=== PATIENT | female | born 1960 | race Caucasian/White ===

== ENCOUNTER 2021-10-20 05:58 | Day surgery (SDC) | payer BC ==
[2021-10-16 15:05] VITALS: BMI 30.7
--- NOTE | 2021-10-19 17:42 | P.HPIHPCON ---
History of Present Illness H&P Date: 10/19/21 This is a 61 yo female with hx of stage IV cystocele option of observation, vaginal repair, and a robotic sacralcolpopexy was discussed with her in detail. Discussed with her the risk and benefit of each approach. She agreed to proceed with a robotic sacral colpopexy. Discussed with her we would be using mesh, discussed the risk which includes but not limited to bleeding, infection, mesh erosion through the vagina, bladder, and rectum, potential of recurrence of the cystocele, and persistent symptoms. discussed the risk of stress urinary incontinence postoperatively.Discussed also with her risk from anesthesia. She understood all the risk and agreed to proceed with robotic sacral colpopexy Consent for Procedure: I have explained the operation/procedure to the patient, including the risks, benefits, side effects, alternative therapies (including not receiving the proposed treatment or service), the likelihood of the patient achieving his/her goals, and potential recuperation problems for the procedure/sedation/analgesia, as well as any blood products, if indicated. I also explained to the patient the risks, benefits and side effects of the alternatives, as well as the risks related to not receiving the proposed procedure, care, treatment, or services. Past Medical History Past Medical History: Thyroid Disorder Additional Past Medical History / Comment(s): PROLASPED BLADDER History of Any Multi-Drug Resistant Organisms: None Reported Past Surgical History: Hysterectomy Additional Past Surgical History / Comment(s): JULIAN TUCK Past Anesthesia/Blood Transfusion Reactions: No Reported Reaction Smoking Status: Never smoker - Past Family History Mother Family Medical History: No Reported History Medications and Allergies Home Medications Medication Instructions Recorded Confirmed Type Levothyroxine Sodium [Synthroid] 200 mcg PO DAILY 10/16/21 10/16/21 History Allergies Allergy/AdvReac Type Severity Reaction Status Date / Time No Known Allergies Allergy Verified 10/16/21 15:00 Surgical - Exam - General no distress, no pain - Eyes normal ocular movement, no pale - Respiratory normal expansion, normal respiratory effort - Abdomen Abdomen: soft, non tender Assessment and Plan Assessment: OR for robotic sacrocolpopexy
[~2021-10-20 05:58] MED LIST: HEPARIN SODIUM,PORCINE/PF 5,000 UNIT/0.5 ML SYRINGE SQ PRN
[2021-10-20] MEDS ORDERED: ONDANSETRON 4 MG/2 ML VIAL ONE (06:20)
[2021-10-20] MEDS ORDERED: DEXAMETHASONE SOD PHOSPHATE 4 MG/ML 1 ML VIAL IVP ONE (06:43)
[2021-10-20] MEDS ORDERED: ONDANSETRON 4 MG/2 ML VIAL IVP ONE (06:43)
[2021-10-20] MEDS ORDERED: LACTATED RINGERS 1,000 ML IV ONE ×2 (06:43→10:52)
[2021-10-20] MEDS ORDERED: MIDAZOLAM 2 MG/2 ML VIAL IVP ONE (07:07)
[2021-10-20] MEDS ORDERED: ROCURONIUM 10 MG/ML (5 ML VIAL) IV ONE (07:45)
[2021-10-20] MEDS ORDERED: fentaNYL (PF) 50 MCG/ML 2 ML AMP ONE (07:45)
[2021-10-20] MEDS ORDERED: PROPOFOL 10 MG/ML 20 ML VIAL IV ONE (07:45)
[2021-10-20] MEDS ORDERED: LIDOCAINE 2% INJ 20 MG/ML (2 ML VIAL) ONE (07:45)
[2021-10-20] MEDS ORDERED: SODIUM CHLORIDE 0.9% (PF) 10 ML VIAL ONE (07:45)
[2021-10-20] MEDS ORDERED: NEOSTIGMINE 1 MG/ML 10 ML VIAL ONE (07:45)
[2021-10-20] MEDS ORDERED: ROPIVACAINE 5 MG/ML 30 ML VIAL ONE (07:45)
[2021-10-20] MEDS ORDERED: MIDAZOLAM 2 MG/2 ML VIAL ONE (07:45)
[2021-10-20] MEDS ORDERED: DEXAMETHASONE SOD PHOSPHATE 4 MG/ML 1 ML VIAL ONE (07:45)
[2021-10-20] MEDS ORDERED: SUCCINYLCHOLINE CHLORIDE 100 MG/5 ML SYR IV ONE (07:45)
[2021-10-20] MEDS ORDERED: LIDOCAINE 4% LTA KIT (4 ML) TOPICAL ONE (07:45)
[2021-10-20] MEDS ORDERED: GLYCOPYRROLATE 0.2 MG/ML 2 ML VIAL ONE (07:45)
[2021-10-20] MEDS ORDERED: HYDROcodone/APAP 5-325MG 1 EACH TAB PO PRN (07:53)
[2021-10-20] MEDS ORDERED: D5-0.45% NACL WITH KCL 20MEQ/L 1,000 ML IV SCH (08:00)
--- NOTE | 2021-10-20 08:27 | P.ANPRN ---
Procedure Note - Anesthesia - Nerve Block Performed Bilateral Transversus Abdominis Single Time Out Performed: Yes Date of Procedure: 10/20/21 Procedure Start Time: : Procedure Stop Time: :13 Location of Patient: PreOp Indication: Acute Post-Operative Pain, Analgesia, Requested by Surgeon Sedation Type: Sedate with meaningful contact maintained Preparation: Sterile Prep Position: Supine Needle Gauge: 20 Ultrasound used to visualize needle placement: Yes Ultrasound used to observe medication spread: Yes Injectate: 0.5% Ropivacaine (see comment for volume) (30ml total) Blood Aspirated: No Pain Paresthesia on Injection Noted: No Resistance on Injection: Normal Image Stored and Saved: Yes Events: Uneventful and Well Tolerated
[2021-10-20] MEDS ORDERED: LEVOTHYROXINE 100 MCG TAB PO SCH (09:00)
[2021-10-20] MEDS ORDERED: BUPIVACAINE (PF) 0.25% 30 ML VIAL SQ ONE (10:57)
--- NOTE | 2021-10-20 11:23 | P.OP ---
Date of Procedure: 10/20/21 Preoperative Diagnosis: Cystocele Postoperative Diagnosis: Same Procedure(s) Performed: Robotic sacral colpopexy r Implants: Coloplast Y mesh Anesthesia: TARANA Surgeon: Cliff Puente Estimated Blood Loss (ml): 25 Pathology: none sent Condition: stable Disposition: PACU Indications for Procedure: This is a 61 yo female with hx of stage IV cystocele option of observation, vaginal repair, and a robotic sacralcolpopexy was discussed with her in detail. Discussed with her the risk and benefit of each approach. She agreed to proceed with a robotic sacral colpopexy. Discussed with her we would be using mesh, discussed the risk which includes but not limited to bleeding, infection, mesh erosion through the vagina, bladder, and rectum, potential of recurrence of the cystocele, and persistent symptoms. discussed the risk of stress urinary in continence postoperatively.Discussed also with her risk from anesthesia. She understood all the risk and agreed to proceed with robotic sacral colpopexy Description of Procedure: She was taken to the OR and administered general anesthesia and placed in lithotomy position. Insufflation was obtained using the Veress needle. Next the robotic camera port was placed above the umbilicus, a 8mm robotic port was placed on the right side, an additional 12 mm assistant associate full professor port was placed more laterally. 2 robotic ports were placed on the left. The robot was then docked a nd the assistant associate full professor sac between the patient's legs with a vaginal sizer. Patient had adhesion along the left lower quadrant, which were lysed sharply . attention was then carried to the prolapse With firm upward traction on the vagina and angle downwards, and with the monopolar scissors and fenestrated bipolar and the bladder was reflected off the vagina. Of note the bladder was quite adherent to the vagina secondary to her previous surgery Minor bleeding points were controlled with bipolar. Once the anterior dissection was completed the attention was directed to the posterior dissection. The assistant associate full professor pushed the sizer in an upwards and the rectum was completely dissected off the vagina down to the perineal body. Again all minor bleeding points were coagulated. Tension was then directed to the sacral promontory. The sigmoid was reflected to the left with the fourth arm, and an incision was made on the peritoneum over the sacral promontory. The entire sacral promontory was dissected, and the fat was excised to expose adequate amount of periosteum and bone to place 2 layers of sutures. Hemostasis was confirmed. The peritoneum posteriorly was incised from the sacral promontory to the vaginal opening to facilitate placement of the mesh. Attention was now directed to the Y mesh. The Y mesh was trimmed to the necessary size and introduced into the body through the 12 mm port. The Y mesh was placed over the vagina with one limb each on the anterior and posterior vaginal wall. Using 2-0 Ethibond interrupted sutures 3 layers of sutures were placed thereby fixing the mesh to the anterior vaginal wall. Care was taken to advance the mesh all the way distally. Attention was then directed to the posterior vaginal wall and the mesh was fixed to the posterior vaginal wall using 2 layers of 2-0 Ethibond, 2 sutures in each layer. Again the sutures were placed as distally as possible to the perineal body. Attention was taken so as to not enter the vagina with the sutures. Once the 2 limbs of the Y mesh was securely placed, attention was directed to the sacral promontory. The assistant associate full professor was asked to push the sizer firmly superiorly and the single Lembert of the Y mesh was then fixed to the sacral promontory in 2 layers with interrupted sutures. Gortex interrupted sutures were used to fix the mesh to the periosteum of the sacral promontory. Once this was completed the sizer was removed from the vagina and inspection of the vagina with a speculum showed complete resolution of the cystocele Hemostasis was again confirmed. A 2-0 lock was then used to close the peritoneum incision so as to extrapertonialize the mesh completely. All the sutures and mesh pieces were removed. A count was performed which was correct. And the abdomen was desufflated and all ports were removed. All the incisions were closed with 4-0 Monocryl subcuticular sutures and the patient was sent to recovery in stable condition with the Das catheter
[2021-10-20] MEDS ORDERED: ONDANSETRON 4 MG/2 ML VIAL IVP PRN (12:47)
[2021-10-20] MEDS: KETOROLAC 15 MG/ML 1 ML VIAL IVP SCH (13:03)
[2021-10-20] MEDS: LACTATED RINGERS 1,000 ML IV SCH ×2 (14:30→22:37)
[2021-10-21] MEDS: KETOROLAC 15 MG/ML 1 ML VIAL IVP SCH ×2 (03:45→08:30)
[2021-10-21] MEDS: LACTATED RINGERS 1,000 ML IV SCH (06:52)
[2021-10-21 08:30] VITALS: BP 128/70; PULSE 78; RESP 14; TEMP 97.8
--- NOTE | 2021-10-21 13:09 | P.DS ---
Providers Expected date of discharge: 10/21/21 Attending physician: Cliff Puente MD Primary care physician: Jd Lamas MD Hospital Course: On the day of admission, the patient underwent an uncomplicated sacrocolpopexy. The perioperative course was unremarkable. She remained afebrile with stable vital signs. On the first postoperative day, the Das catheter was removed. She was able to void and empty adequately. She felt well, reporting only mild incisional discomfort, and denied nausea. Procedures: Robotic sacrocolpopexy on 10/20/2021. Patient Condition at Discharge: Good Plan - Discharge Summary Discharge Rx Participant: Yes New Discharge Prescriptions: New Ketorolac [Toradol] 10 mg PO Q6HR PRN #12 tab PRN Reason: Pain No Action Levothyroxine Sodium [Synthroid] 200 mcg PO DAILY Discharge Medication List Levothyroxine Sodium [Synthroid] 200 mcg PO DAILY 10/16/21 [History] Ketorolac [Toradol] 10 mg PO Q6HR PRN #12 tab 10/21/21 [Rx] Follow up Appointment(s)/Referral(s): Cliff Puente MD [STAFF PHYSICIAN] - 1 Week Activity/Diet/Wound Care/Special Instructions: Diet as tolerated. Okay to shower. No lifting or strenuous activity. Discharge Disposition: HOME SELF-CARE
== END 2021-10-21 13:55 | disposition home or self-care (01) ==
LOC: OR 05:58 → 4FBP 11:01 → OR 10-21 13:55
PROVIDERS: ATTEND Urology
DX: N81.10 Cystocele, unspecified (principal); E07.9 Disorder of thyroid, unspecified; Z87.448 Personal history of other diseases of urinary system; Z90.710 Acquired absence of both cervix and uterus; Z98.890 Other specified postprocedural states; Z79.890 Hormone replacement therapy
CPT/HCPCS: 57425; S2900; 64488; 86850; 86900; 86901

== ENCOUNTER → 2022-11-02 | Outpatient (CLI) | payer BC ==
--- NOTE | 2022-11-05 19:20 | MM ---
Reason for Exam: Screening (asymptomatic). Last mammogram was performed 5 year(s) and 7 month(s) ago. Patient History: Menarche at age 15. First Full-Term at age 23. Left ovary removed at age 53. Right ovary removed at age 53. Hysterectomy at age 53. Postmenopausal. Patient has history of breast feeding. Previous chest radiation therapy. 05/09/2017, US discontinued breast bx LT on the left side. Risk Values: Rashim 5 year model risk: 1.2%. NCI Lifetime model risk: 5.8%. Prior Study Comparison: 03/28/2017 Bilateral MG 3D screening mammo w/cad, [facility]. 04/04/2017 Left Diagnostic Ultrasound, [facility]. Tissue Density: There are scattered fibroglandular densities. Findings: Analyzed By CAD. Pattern appears symmetrical and stable. No significant interval change. Benign vascular calcification is present bilaterally. No suspicious groups of microcalcifications, spiculated or lobular masses, architectural distortion or other secondary signs of malignancy are mammographically apparent. Overall Assessment: Benign, BI-RAD 2 Management: Screening Mammogram of both breasts in 1 year. A negative mammogram report should not preclude additional follow up of suspicious palpable abnormalities. Patient should continue monthly self breast exam. A clinical breast exam by your physician is recommended on an annual basis and results should be correlated with mammographic findings. Electronically signed and approved by: Niles Feliz D.O. Radiologis
== END | disposition home or self-care (01) ==
LOC: RADMAMWWP 15:59
PROVIDERS: ATTEND Family Medicine
DX: Z12.31 Encounter for screening mammogram for malignant neoplasm of breast (principal); Z78.0 Asymptomatic menopausal state
CPT/HCPCS: 77063; 77067

== ENCOUNTER → 2024-05-06 | Outpatient (CLI) | payer BC ==
--- NOTE | 2024-05-11 11:35 | MM ---
Reason for Exam: Screening (asymptomatic). Last mammogram was performed 1 year(s) and 6 month(s) ago. Patient History: Menarche at age 15. First Full-Term at age 23. Left ovary removed at age 53. Right ovary removed at age 53. Hysterectomy at age 53. Postmenopausal. Patient has history of breast feeding. Previous chest radiation therapy. 05/09/2017, US discontinued breast bx LT on the left side. Maternal grandmother had breast cancer. Risk Values: Rashmi 5 year model risk: 1.3%. NCI Lifetime model risk: 5.5%. Prior Study Comparison: 03/28/2017 Bilateral MG 3D screening mammo w/cad, [facility] . 11/02/2022 Bilateral MG 3D screening mammo w/cad, [facility]. Tissue Density: There are scattered areas of fibroglandular density. Findings: Analyzed By CAD. There is no suspicious group of microcalcifications or new suspicious mass in either breast. Overall Assessment: Negative, BI-RAD 1 Management: Screening Mammogram of both breasts in 1 year. . Patient should continue monthly self-breast exams. A clinical breast exam by your physician is recommended on an annual basis. This exam should not preclude additional follow-up of suspicious palpable abnormalities. Note on Rashmi scores and lifetime risk: 1. A Rashmi score greater than 3% is considered moderate risk. If this is the case, consider specialist referral to assess eligibility for a risk reducing agent. 2. If overall lifetime risk for the development of breast cancer is 20% or higher, the patient may qualify for future screening with alternating mammogram and breast MRI. [facility], , 05/11/2024 11:32 AM. Electronically signed and approved by: Jose Ashton M.D. Radiologis
== END | disposition home or self-care (01) ==
LOC: RADMAMWWP 15:25
PROVIDERS: ATTEND Family Medicine
DX: Z12.31 Encounter for screening mammogram for malignant neoplasm of breast (principal); R92.323 Mammographic fibroglandular density, bilateral breasts; Z78.0 Asymptomatic menopausal state; Z80.3 Family history of malignant neoplasm of breast; Z92.3 Personal history of irradiation; Z90.722 Acquired absence of ovaries, bilateral
CPT/HCPCS: 77063; 77067

== ENCOUNTER → 2024-05-11 | Outpatient (CLI) | payer BC ==
--- NOTE | 2024-05-11 16:59 | US ---
EXAMINATION TYPE: US carotid duplex BILAT DATE OF EXAM: 05/11/2024 COMPARISON: NONE CLINICAL INDICATION: Female, 64 years old with history of I77.9 DISORDER OF ARTERIES AND ARTERIOLES; TECHNIQUE: Grayscale, color Doppler and spectral Doppler evaluation of the bilateral carotid systems and vertebral arteries. Indirect Doppler criteria was utilized. FINDINGS: EXAM MEASUREMENTS: RIGHT: Peak Systolic Velocity (PSV) cm/sec ----- Right CCA: 68.2 ----- Right ICA: 61.2 ----- Right ECA: 79.2 ICA/CCA ratio: 0.9 RIGHT: End Diastole cm/sec ----- Right CCA: 22.8 ----- Right ICA: 24.5 ----- Right ECA: 17.6 LEFT: Peak Systolic Velocity (PSV) cm/sec ----- Left CCA: 74.3 ----- Left ICA: 57.2 ----- Left ECA: 70.8 ICA/CCA ratio: 0.8 LEFT: End Diastole cm/sec ----- Left CCA: 23.7 ----- Left ICA: 21.5 ----- Left ECA: 20.8 VERTEBRALS (direction of flow): Right Vertebral: Antegrade Left Vertebral: Antegrade Rhythm: Normal Color Doppler imaging shows patency with blood flow throughout the carotid artery. Spectral waveforms are within normal limits. IMPRESSION: Right: No hemodynamically significant stenosis. Left: No hemodynamically significant stenosis. Criteria for Assigning % of Stenosis / Diameter reduction (Estimation based on the indirect measurements of the internal carotid artery velocities (ICA PSV). 1. Normal (no stenosis)=ICA PSV < 125 cm/s: ratio < 2.0: ICA EDV<40 cm/s. 2. Less than 50% stenosis=ICA PSV < 125 cm/s: ratio < 2.0: ICA EDV<40 cm/s. 3. 50 to 69% stenosis=ICA PSV of 125 to 230 cm/s: ration 2.0 ? 4.0: ICA EDV 40-100 cm/s. 4. Greater than 70% stenosis to near occlusion= ICA PSV > 230 cm/s: ratio > 4.0: ICA EDV > 100 cm/s. 5. Near occlusion= ICA PSV velocities may be low or undetectable: variable ratio and ICA EDV. 6. Total occlusion=unable to detect flow. [facility], , 05/11/2024 4:56 PM
== END | disposition home or self-care (01) ==
LOC: RADUSWWP 16:12
PROVIDERS: ATTEND Family Medicine
DX: I77.9 Disorder of arteries and arterioles, unspecified (principal)
CPT/HCPCS: 93880